=== PATIENT | male | born 1990 | race Caucasian/White ===

== ENCOUNTER 2018-07-19 09:15 | Emergency (ER) | payer OTHER ==
[2018-07-19] MEDS ORDERED: NA CHLORIDE 0.9% 1,000 ML ONE ×2 (10:05→13:43)
[2018-07-19 10:09] LABS: Protime INR 0.96
[2018-07-19 10:11] LABS: Absolute Lymphocytes (CBC) 1.2 K/uL (0.7-4.9); Absolute Monocytes 0.5 K/uL (0.1-1.3); Absolute Neutrophil 3.3 K/uL (1.8-8.0); Basophils % 0.4 % (0-1.3); Eosinophils % 1.3 % (0-4.4); Hematocrit 42.8 % (39.6-49.0); Lymphocytes % 23.9 % (15.3-44.8); MCV 89.5 fL (80-100); MPV 8.8 fL (7.6-11.3); Monocytes % 9.2 % (3.3-12.3); RBC Red Blood Cell Count 4.79 M/uL (4.33-5.43)
[2018-07-19 10:23] LABS: ALT/SGPT 32 U/L (12-78); AST/SGOT 20 U/L (15-37); Albumin 3.8 g/dL (3.4-5.0); Alkaline Phosphatase 79 U/L (45-117); BUN Blood Urea Nitrogen 12 mg/dL (7-18); Bicarbonate 28 mmol/L (21-32); Bilirubin Direct 0.1 mg/dL (0-0.2); Bilirubin Total 0.4 mg/dL (0.2-1.0); Glucose Level 93 mg/dL (74-106); Potassium 4.1 mmol/L (3.5-5.1); Protein, Total 7.5 g/dL (6.4-8.2); Sodium Level 141 mmol/L (136-145)
[2018-07-19 11:42] LABS: Barbiturates NEGATIVE (NEGATIVE); Benzodiazepines NEGATIVE (NEGATIVE); Cocaine NEGATIVE (NEGATIVE); METHAMPHETAM NEGATIVE (NEGATIVE); Methadone NEGATIVE (NEGATIVE); Opiates NEGATIVE (NEGATIVE); Phencyclidine NEGATIVE (NEGATIVE); THC Cannibis NEGATIVE (NEGATIVE)
[2018-07-19 12:19] LABS: Urine Blood NEGATIVE (NEG); Urine Glucose NEGATIVE (NEG); Urine Protein NEGATIVE (NEG); Urine pH 6.5 (5.0-7.0)
--- NOTE | 2018-07-19 13:08 | EKG ---
Test Date: 2018-07-19 Test Time: 09:36:06 Supervisor C[employer] Making Hand: MELVIN MEASUREMENT RESULTS: Intervals: Rate: 81 AL: 158 QRSD: 82 QT: 356 QTc: 413 [place]: P: 67 AL: 158 QRS: 88 T: 41 INTERPRETIVE STATEMENTS: Normal sinus rhythm Normal ECG No previous ECG available for comparison Electronically Signed On 07-19-18 13:07:36 PRESS TENDER SMOKE SIGNAL by Quang Suazo
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
== END 2018-07-19 18:58 | disposition home or self-care (01) ==
LOC: ER 09:15
DX: T43.592A Poisoning by other antipsychotics and neuroleptics, intentional self-harm, initial encounter (principal); F32.9 Major depressive disorder, single episode, unspecified; F31.9 Bipolar disorder, unspecified; F17.210 Nicotine dependence, cigarettes, uncomplicated
CPT/HCPCS: 36415; 80048; 80076; 80307; 80320; 80329; 81003; 85025; 85610; 85730; 93005; 96360; 96361; 99285; J7030

== ENCOUNTER 2018-11-09 04:39 | Emergency (ER) | payer BC, OTHER ==
--- NOTE | 2018-11-09 04:57 | EDPHYS ---
Physician Documentation [facility] Name: Trixie Rutledge Age: 28 yrs Sex: Male : 1990 Arrival Date: 11/09/2018 Time: 04:42 Bed 18 Private MD: ED Physician Tobias Lei HPI: 11/09 04:53 This 28 yrs old Male presents to ER via Unassigned with complaints of Runny ps1 Nose. 04:53 patient has flu like illness for 3 days. LEIJA, sore throat, body aches, runny nose. Not ps1 taking medications. Took a dayquil yesterday. Sick contacts. Flu is prevalent. OOW for tamiflu. . Historical: - Allergies: 04:55 No Known Allergies; tl2 - PMHx: 04:55 Anxiety; Bipolar disorder; Depression; tl2 - PSHx: 04:55 brain sx; tl2 - Immunization history:: Adult Immunizations up to date. - Social history:: Smoking status: Patient/guardian denies using tobacco. - Ebola Screening: : No symptoms or risks identified at this time. ROS: 04:53 Eyes: Negative for injury, pain, redness, and discharge, Neck: Negative for injury, ps1 pain, and swelling, Cardiovascular: Negative for chest pain, palpitations, and edema, Abdomen/GI: Negative for abdominal pain, nausea, vomiting, diarrhea, and constipation, Back: Negative for injury and pain, MS/Extremity: Negative for injury and deformity, Skin: Negative for injury, rash, and discoloration, Neuro: Negative for headache, weakness, numbness, tingling, and seizure. 04:53 Constitutional: Positive for body aches, chills, fatigue, malaise. 04:53 ENT: Positive for rhinorrhea, sinus congestion. 04:53 Respiratory: Positive for cough. Exam: 04:53 Constitutional: This is a well developed, well nourished patient who is awake, alert, ps1 and in no acute distress. Neck: Trachea midline, no thyromegaly or masses palpated, and no cervical lymphadenopathy. Supple, full range of motion without nuchal rigidity, or vertebral point tenderness. No Meningismus. Chest/axilla: Normal chest wall appearance and motion. Nontender with no deformity. No lesions are appreciated. Cardiovascular: Regular rate and rhythm. No gallops, murmurs, or rubs. Normal PMI, no JVD. No pulse deficits. Respiratory: Lungs have equal breath sounds bilaterally, clear to auscultation and percussion. No rales, rhonchi or wheezes noted. No increased work of breathing, no retractions or nasal flaring. Abdomen/GI: Soft, non-tender, with normal bowel sounds. No distension or tympany. No guarding or rebound. No evidence of tenderness throughout. Skin: Warm, dry with normal turgor. Normal color with no rashes, no lesions, and no evidence of cellulitis. MS/ Extremity: Pulses equal, no cyanosis. Neurovascular intact. Full, normal range of motion. Neuro: Awake and alert, GCS 15, oriented to person, place, time, and situation. Cranial nerves II-XII grossly intact. Sensory grossly intact. 04:53 ENT: Nose: Turbinates: are swollen bilaterally, sinus congestion. Vital Signs: 04:55 BP 134 / 65; Pulse 96; Resp 18; Temp 97.5(O); Pulse Ox 96% on R/A; Weight 81.65 kg; tl2 Height 5 ft. 8 in. (172.72 cm); 04:55 Body Mass Index 27.37 (81.65 kg, 172.72 cm) tl2 MDM: 04:55 Data reviewed: vital signs, nurses notes, and as a result, I will discharge patient. ED ps1 course: Patient 3 days into sickness. OOW for tamiflu. Influenza endemic. Home with symptomatic medications, Encourage fluids, aleve, chlorpheneramine, tylenol cold and flu, tessalon. . 04:57 Patient medically screened. ps1 11/09 04:49 Order name: Flu ea Administered Medications: No medications were administered Disposition: 04:55 Chart complete. ps1 Disposition: 11/09/18 04:57 Discharged to Home. Impression: Influenza-like illness. - Condition is Stable. - Discharge Instructions: Influenza, Adult. - Prescriptions for Cepacol Sore Throat (kevin- men) - take 1 lozenge by ORAL route as directed; 30 lozenge. Tylenol Cold and Flu Severe - take 1 Tablespoon by ORAL route as directed; 2 bottle. Anaprox DS 550 mg Oral Tablet - take 1 tablet by ORAL route every 12 hours As needed; 20 tablet. Tessalon Perles 100 mg Oral Capsule - take 1 capsule by ORAL route every 8 hours As needed; 15 capsule. Afrin (oxymetazoline) 0.05 % Nasal Aerosol, [place] - spray 2 sprays by INTRANASAL route 2 times per day Not to exceed 3 days use; 1 Container. - Work release form, Medication Reconciliation Form, Thank You Letter, Antibiotic Education, Prescription Opioid Use form. - Follow up: Private Physician; When: As needed; Reason: Recheck today's complaints, Continuance of care, Re-evaluation by your physician. Follow up: Emergency Department; When: As needed; Reason: Worsening of condition. - Problem is new. - Symptoms are unchanged. Signatures: Dispatcher [employer] EDMS Rufina Hawkins RN RN tl2 Tobias Lei MD MD ps1 Corrections: (The following items were deleted from the chart) 05:31 04:57 11/09/2018 04:57 Discharged to Home. Impression: Influenza-like illness. tl2 Condition is Stable. Forms are Medication Reconciliation Form, Thank You Letter, Antibiotic Education, Prescription Opioid Use. Follow up: Private Physician; When: As needed; Reason: Recheck today's complaints, Continuance of care, Re-evaluation by your physician. Follow up: Emergency Department; When: As needed; Reason: Worsening of condition. Problem is new. Symptoms are unchanged. ps1
--- NOTE | 2018-11-09 04:57 | ER ---
Nurse's Notes [facility] Name: Trixie Rutledge Age: 28 yrs Sex: Male : 1990 Arrival Date: 11/09/2018 Time: 04:42 Bed 18 Private MD: Diagnosis: Influenza-like illness Presentation: 11/09 04:53 Presenting complaint: Patient states: flu-like symptoms, body aches, sore throat, runny ea nose productive cough x 3 days. Denies fever. Transition of care: patient was not received from another setting of care. Onset of symptoms was November 06, 2018. Risk Assessment: Do you want to hurt yourself or someone else? Patient reports no desire to harm self or others. Initial Sepsis Screen: Does the patient meet any 2 criteria? No. Patient's initial sepsis screen is negative. Does the patient have a suspected source of infection? No. Patient's initial sepsis screen is negative. Care prior to arrival: None. 04:53 Method Of Arrival: Ambulatory ea 04:53 Acuity: BHARAT 4 ea Triage Assessment: 04:55 General: Appears in no apparent distress. uncomfortable, Behavior is calm, cooperative, tl2 appropriate for age. Pain: Complains of pain in body aches. Neuro: Level of Consciousness is awake, alert, obeys commands, Oriented to person, place, time, situation. Cardiovascular: Denies chest pain. Respiratory: Reports cough that is productive, Airway is patent Respiratory effort is even, unlabored, Respiratory pattern is regular, symmetrical. GI: No signs and/or symptoms were reported involving the gastrointestinal system. : No signs and/or symptoms were reported regarding the genitourinary system. Derm: Skin is pink, warm \T\ dry. Historical: - Allergies: 04:55 No Known Allergies; tl2 - PMHx: 04:55 Anxiety; Bipolar disorder; Depression; tl2 - PSHx: 04:55 brain sx; tl2 - Immunization history:: Adult Immunizations up to date. - Social history:: Smoking status: Patient/guardian denies using tobacco. - Ebola Screening: : No symptoms or risks identified at this time. Screenin:59 Abuse screen: Denies threats or abuse. Nutritional screening: No deficits noted. tl2 Tuberculosis screening: No symptoms or risk factors identified. Fall Risk None identified. Assessment: 04:55 General: see triage assessment. tl2 Vital Signs: 04:55 BP 134 / 65; Pulse 96; Resp 18; Temp 97.5(O); Pulse Ox 96% on R/A; Weight 81.65 kg; tl2 Height 5 ft. 8 in. (172.72 cm); 04:55 Body Mass Index 27.37 (81.65 kg, 172.72 cm) tl2 ED Course: 04:42 Patient arrived in ED. ag3 04:48 Tobias Lei MD is Attending Physician. ps1 04:54 Triage completed. ea 04:55 Arm band placed on right wrist. tl2 04:55 Patient did not have IV access during this emergency room visit. tl2 04:59 Patient has correct armband on for positive identification. Bed in low position. Call tl2 light in reach. Side rails up X 1. 04:59 No provider procedures requiring assistance completed. tl2 05:09 Rufina Hawkins RN is Primary Nurse. tl2 Administered Medications: No medications were administered Outcome: 04:55 Discharged to home ambulatory, with family. tl2 04:55 Condition: stable 04:55 Discharge instructions given to patient, Instructed on discharge instructions, follow up and referral plans. medication usage, Demonstrated understanding of instructions, follow-up care, medications, Prescriptions given X 5 04:57 Discharge ordered by . ps1 05:31 Patient left the ED. tl2 Signatures: Rufina Hawkins RN RN tl2 Misa Rowe RN RN ea Singer, Phillip, MD MD ps1 Kristan Juan ag3
== END 2018-11-09 05:31 | disposition home or self-care (01) ==
LOC: ER 04:39
DX: J11.1 Influenza due to unidentified influenza virus with other respiratory manifestations (principal)
CPT/HCPCS: 87804; 99282

== ENCOUNTER 2018-11-14 13:13 | Emergency (ER) | payer BC ==
--- NOTE | 2018-11-14 14:57 | ER ---
Nurse's Notes [facility] Name: Trixie Rutledge Age: 28 yrs Sex: Male : 1990 Arrival Date: 11/14/2018 Time: 13:16 Bed Waiting Private MD: None, None Diagnosis: Presentation: 11/14 13:40 Presenting complaint: Right ring finger pain and swelling upon waking today. Denies hb injury. Transition of care: patient was not received from another setting of care. Onset of symptoms was November 14, 2018. Risk Assessment: Do you want to hurt yourself or someone else? Patient reports no desire to harm self or others. Care prior to arrival: None. 13:40 Method Of Arrival: Ambulatory hb 13:40 Acuity: BHARAT 4 hb Historical: - Allergies: 13:41 No Known Allergies; hb - PMHx: 13:41 Anxiety; Bipolar disorder; Depression; hb - PSHx: 13:41 brain sx; Shoulder - RIGHT; Hand - RIGHT; hb - Immunization history:: Adult Immunizations up to date. - Social history:: Smoking status: Patient/guardian denies using tobacco. - Ebola Screening: : No symptoms or risks identified at this time. Vital Signs: 13:41 BP 123 / 70; Pulse 97; Resp 16; Temp 98.0; Pulse Ox 99% on R/A; Pain 6/10; hb ED Course: 13:16 Patient arrived in ED. as 13:16 None, None is Private Physician. as 13:41 Triage completed. hb 13:41 Arm band placed on. hb 14:40 Patient's name was called from ER lobby. No response. Unable to locate patient. Will hb disposition as left without being seen by a provider. 14:56 Patient's name was called from ER lobby. No response. Unable to locate patient. Will hb disposition as left without being seen by a provider. Administered Medications: No medications were administered Outcome: 14:57 Patient left the ED. hb Signatures: Alma Delia Elizondo Heather, RN RN hb
== END 2018-11-14 14:57 | disposition left against medical advice (07) ==
LOC: ER 13:13
DX: M79.644 Pain in right finger(s) (principal); Z53.21 Procedure and treatment not carried out due to patient leaving prior to being seen by health care provider
CPT/HCPCS: 99281

== ENCOUNTER 2018-11-14 21:02 | Emergency (ER) | payer BC ==
--- NOTE | 2018-11-14 22:13 | ER ---
Nurse's Notes [facility] Name: Trixie Rutledge Age: 28 yrs Sex: Male : 1990 Arrival Date: 11/14/2018 Time: 21:06 Bed 11 Private MD: None, None Diagnosis: Other specific joint derangements of right hand, not elsewhere classified Presentation: 11/14 21:07 Presenting complaint: Patient states: "I might have broken my ring finger on my right jd3 hand. I also need to have a flu test done.". Transition of care: patient was not received from another setting of care. Onset of symptoms was November 14, 2018. Risk Assessment: Do you want to hurt yourself or someone else? Patient reports no desire to harm self or others. Initial Sepsis Screen: Does the patient meet any 2 criteria? No. Patient's initial sepsis screen is negative. Does the patient have a suspected source of infection? No. Patient's initial sepsis screen is negative. Care prior to arrival: None. 21:07 Method Of Arrival: Ambulatory jd3 21:07 Acuity: BHARAT 4 jd3 Historical: - Allergies: 21:09 No Known Allergies; jd3 - Home Meds: 21:09 None [Active]; jd3 - PMHx: 21:09 Anxiety; Bipolar disorder; Depression; ADD/ADHD; jd3 - PSHx: 21:09 Hand - RIGHT; Shoulder - RIGHT; brain sx; jd3 - Immunization history:: Adult Immunizations up to date. - Social history:: Smoking status: Patient uses tobacco products, smokes one pack cigarettes per day. - Ebola Screening: : Patient negative for fever greater than or equal to 101.5 degrees Fahrenheit, and additional compatible Ebola Virus Disease symptoms. Screenin:37 Abuse screen: Denies threats or abuse. Denies injuries from another. Nutritional ao screening: No deficits noted. Tuberculosis screening: No symptoms or risk factors identified. Fall Risk None identified. Assessment: 21:45 General: Appears in no apparent distress. comfortable, Behavior is calm, cooperative, ao appropriate for age. Pain: Complains of pain in PIP of right ring finger. Neuro: Level of Consciousness is awake, alert, obeys commands, Oriented to person, place, time, situation, Appropriate for age Moves all extremities. Full function Speech is normal, Facial symmetry appears normal. Cardiovascular: Capillary refill < 3 seconds Patient's skin is warm and dry. Respiratory: Airway is patent Respiratory effort is even, unlabored, Respiratory pattern is regular, symmetrical, Breath sounds are clear bilaterally. GI: Abdomen is flat, non-distended. : No deficits noted. No signs and/or symptoms were reported regarding the genitourinary system. EENT: No deficits noted. No signs and/or symptoms were reported regarding the EENT system. Derm: Skin is intact, Skin is pink, warm \\T\\ dry. normal, Skin temperature is warm. Musculoskeletal: Circulation, motion, and sensation intact. Range of motion: intact in all extremities, Reports pain in PIP of right ring finger. 22:36 Reassessment: Dc instructions given to patient. Pt agree with POC and to follow up with ao an orthopedic. Ring finger was splinted. No questions. Vital Signs: 21:09 BP 122 / 81; Pulse 99; Resp 16 S; Temp 98.1(TE); Pulse Ox 100% on R/A; Weight 86.18 kg jd3 (R); Height 5 ft. 10 in. (177.80 cm) (R); Pain 4/10; 22:36 Pulse 94; Resp 16; Pulse Ox 99% on R/A; Pain 0/10; ao 21:09 Body Mass Index 27.26 (86.18 kg, 177.80 cm) jd3 ED Course: 21:06 Patient arrived in ED. mr 21:06 None, None is Private Physician. mr 21:08 Triage completed. jd3 21:10 Arm band placed on. jd3 21:29 Jignesh Ragland MD is Attending Physician. gs 21:44 Ke Taylor, HAZEL is Primary Nurse. ao 22:00 Hand Right 3 View XRAY In Process Unspecified. EDMS 22:12 Lamonte Harrington MD is Referral Physician. gs 22:37 No provider procedures requiring assistance completed. Patient did not have IV access ao during this emergency room visit. 22:39 Patient has correct armband on for positive identification. ao Administered Medications: No medications were administered Outcome: 22:12 Discharge ordered by . gs 22:38 Discharged to home ambulatory. ao 22:38 Condition: stable 22:38 Discharge instructions given to patient, Instructed on discharge instructions, follow up and referral plans. Demonstrated understanding of instructions, follow-up care, medications, Prescriptions given X Pt refused to take prescriptions and was advise to take Ibuprofen if needed for pain. 22:39 Patient left the ED. ao Signatures: Dispatcher [employer] MARLYSYoselin FuentesKe RN RN ao Starr, Gregory, MD MD gs Davies, Jonathon, RN RN jd3 Corrections: (The following items were deleted from the chart) 21:11 21:09 Pulse 99bpm; Resp 16bpm; Spontaneous; Pulse Ox 100% RA; Temp 98.1F Temporal; jd3 86.18 kg Reported; Height 5 ft. 10 in. Reported; BMI: 27.2; Pain 4/10; jd3
--- NOTE | 2018-11-14 22:13 | EDPHYS ---
Physician Documentation [facility] Name: Trixie Rutledge Age: 28 yrs Sex: Male : 1990 Arrival Date: 11/14/2018 Time: 21:06 Bed 11 Private MD: None, None ED Physician Jignesh Ragland HPI: 11/14 22:08 This 28 yrs old Male presents to ER via Ambulatory with complaints of gs swelling r ring finger. 22:08 The complaints affect the dorsal aspect of proximal phalanx of right ring finger. gs Onset: The symptoms/episode began/occurred acutely. Associated signs and symptoms: Pertinent negatives: cyanosis distally, decreased sensation distally, fever, nausea, numbness distally. Severity of symptoms: At their worst the symptoms were moderate, in the emergency department the symptoms are unchanged. The patient has not experienced similar symptoms in the past. The patient has been recently seen at the [facility] Emergency Department, a couple of weeks ago, for unrelated complaints. Historical: - Allergies: 21:09 No Known Allergies; jd3 - Home Meds: 21:09 None [Active]; jd3 - PMHx: 21:09 Anxiety; Bipolar disorder; Depression; ADD/ADHD; jd3 - PSHx: 21:09 Hand - RIGHT; Shoulder - RIGHT; brain sx; jd3 - Immunization history:: Adult Immunizations up to date. - Social history:: Smoking status: Patient uses tobacco products, smokes one pack cigarettes per day. - Ebola Screening: : Patient negative for fever greater than or equal to 101.5 degrees Fahrenheit, and additional compatible Ebola Virus Disease symptoms. ROS: 22:08 All other systems are negative. gs Exam: 22:08 ENT: Nares patent. No nasal discharge, no septal abnormalities noted. Tympanic gs membranes are normal and external auditory canals are clear. Oropharynx with no redness, swelling, or masses, exudates, or evidence of obstruction, uvula midline. Mucous membranes moist. Cardiovascular: Regular rate and rhythm with a normal S1 and S2. No gallops, murmurs, or rubs. Normal PMI, no JVD. No pulse deficits. Respiratory: Lungs have equal breath sounds bilaterally, clear to auscultation and percussion. No rales, rhonchi or wheezes noted. No increased work of breathing, no retractions or nasal flaring. Abdomen/GI: Soft, non-tender, with normal bowel sounds. No distension or tympany. No guarding or rebound. No evidence of tenderness throughout. Back: No spinal tenderness. No costovertebral tenderness. Full range of motion. Skin: Warm, dry with normal turgor. Normal color with no rashes, no lesions, and no evidence of cellulitis. Neuro: Awake and alert, GCS 15, oriented to person, place, time, and situation. Cranial nerves II-XII grossly intact. Motor strength 5/5 in all extremities. Sensory grossly intact. Cerebellar exam normal. Normal gait. 22:08 Constitutional: The patient appears alert, awake. 22:08 Musculoskeletal/extremity: Extremities: noted in the dorsal aspect of proximal phalanx of right ring finger: ROM: limited active range of motion, limited passive range of motion, limited active range of motion due to pain, limited passive range of motion due to pain, Pulses: are normal with no appreciated deficits, Joints: the PIP of right ring finger displays swelling, tenderness, no warmth or redness decreased rom. Vital Signs: 21:09 BP 122 / 81; Pulse 99; Resp 16 S; Temp 98.1(TE); Pulse Ox 100% on R/A; Weight 86.18 kg jd3 (R); Height 5 ft. 10 in. (177.80 cm) (R); Pain 4/10; 22:36 Pulse 94; Resp 16; Pulse Ox 99% on R/A; Pain 0/10; ao 21:09 Body Mass Index 27.26 (86.18 kg, 177.80 cm) jd3 Procedures: 22:08 Splinting: Splint applied to PIP of right ring finger using finger splint, applied by tech. Examined by me, post splint application: neurovascular intact, 2+ distal pulses palpable, brisk capillary refill noted, Patient tolerated well. MDM: 21:39 Patient medically screened. 22:08 Differential diagnosis: closed fracture, contusion, tendonitis, sprain. Data reviewed: vital signs, nurses notes. Response to treatment: the patient's symptoms have mildly improved after treatment. 03 21:41 Order name: Hand Right 3 View XRAY; Complete Time: 22:23 Administered Medications: No medications were administered Disposition: 11/14/18 22:12 Discharged to Home. Impression: Other specific joint derangements of right hand, not elsewhere classified. - Condition is Stable. - Discharge Instructions: Articular Cartilage Injury. - Prescriptions for Tylenol- Codeine #4 300-60 mg Oral Tablet - take 1 tablet by ORAL route every 6 hours As needed; 6 tablet. - Medication Reconciliation Form, Thank You Letter, Antibiotic Education, Prescription Opioid Use form. - Follow up: Lamonte Harrington MD; When: 2 - 3 days; Reason: Re-evaluation by your physician. Signatures: Dispatcher [employer] Ke Victoria RN RN Jignesh Parker MD MD gs Davies, Jonathon RN RN jd3 Corrections: (The following items were deleted from the chart) 22:39 22:12 11/14/2018 22:12 Discharged to Home. Impression: Other specific joint ao derangements of right hand, not elsewhere classified. Condition is Stable. Forms are Medication Reconciliation Form, Thank You Letter, Antibiotic Education, Prescription Opioid Use. Follow up: Lamonte Harrington; When: 2 - 3 days; Reason: Re-evaluation by your physician. gs
--- NOTE | 2018-11-14 22:19 | RAD REPORT ---
EXAM DESCRIPTION: RAD - Hand Right 3 View - 11/14/2018 10:00 pm CLINICAL HISTORY: PAIN Trauma, COMPARISON: <Comparisons> FINDINGS: Tiny bony fragment is seen adjacent to the fourth metacarpal head along the ulnar aspect. This is favored to be related prior trauma and not an acute finding. Correlation with point tendernes s in this location is advised, however. No definitive acute fracture seen.
== END 2018-11-14 22:39 | disposition home or self-care (01) ==
LOC: ER 21:02
DX: M24.841 Other specific joint derangements of right hand, not elsewhere classified (principal); F41.9 Anxiety disorder, unspecified; F31.9 Bipolar disorder, unspecified; F32.9 Major depressive disorder, single episode, unspecified
CPT/HCPCS: 99283

== ENCOUNTER 2018-12-12 22:58 | Emergency (ER) | payer BC ==
--- NOTE | 2018-12-13 01:02 | ER ---
Nurse's Notes [facility] Name: Trixie Rutledge Age: 28 yrs Sex: Male : 1990 Arrival Date: 12/12/2018 Time: 23:02 Bed 6 Private MD: Diagnosis: Headache Presentation: 12/12 23:19 Presenting complaint: Patient states: "I am having a headache after I pumped my head at [employer] work today. I had a brain surgery in 2012 and I was scared that I had re injured it after going on [employer].". Transition of care: patient was not received from another setting of care. Onset of symptoms was December 12, 2018. Risk Assessment: Do you want to hurt yourself or someone else? Patient reports no desire to harm self or others. Initial Sepsis Screen: Does the patient meet any 2 criteria? No. Patient's initial sepsis screen is negative. Does the patient have a suspected source of infection? No. Patient's initial sepsis screen is negative. Care prior to arrival: None. 23:19 Method Of Arrival: Ambulatory j 23:19 Acuity: BHARAT 4 jd3 Historical: - Allergies: 23:24 No Known Allergies; jd3 - Home Meds: 23:24 Seroquel Oral [Active]; jd3 - PMHx: 23:24 ADD/ADHD; Anxiety; Bipolar disorder; Depression; jd3 - PSHx: 23:24 Hand - RIGHT; Shoulder - RIGHT; brain sx; jd3 - Immunization history:: Adult Immunizations unknown. - Social history:: Smoking status: Patient uses tobacco products, smokes one pack cigarettes per day. - Ebola Screening: : Patient negative for fever greater than or equal to 101.5 degrees Fahrenheit, and additional compatible Ebola Virus Disease symptoms. Screenin:53 Abuse screen: Denies threats or abuse. Nutritional screening: No deficits noted. tl2 Tuberculosis screening: No symptoms or risk factors identified. Fall Risk None identified. Assessment: 23:53 General: Appears in no apparent distress. comfortable, Behavior is calm, cooperative, tl2 appropriate for age. Pain: Complains of pain in headache. Neuro: Level of Consciousness is awake, alert, obeys commands, Oriented to person, place, time, situation, Reports headache Denies weakness blurred vision dizziness. Cardiovascular: Denies chest pain. Respiratory: Airway is patent Respiratory effort is even, unlabored, Respiratory pattern is regular, symmetrical. GI: No signs and/or symptoms were reported involving the gastrointestinal system. : No signs and/or symptoms were reported regarding the genitourinary system. Derm: Skin is pink, warm \\T\\ dry. Vital Signs: 23:24 BP 128 / 86; Pulse 102; Resp 16 S; Temp 98.2(O); Pulse Ox 99% on R/A; Weight 44.54 kg jd3 (R); Height 5 ft. 10 in. (177.80 cm) (R); Pain 3/; 23:24 Body Mass Index 14.09 (44.54 kg, 177.80 cm) jd3 Janie Coma Score: 12/13 00:27 Eye Response: spontaneous(4). Verbal Response: oriented(5). Motor Response: obeys kb commands(6). Total: 15. 00:27 Eye Response: spontaneous(4). Verbal Response: oriented(5). Motor Response: obeys kb commands(6). Total: 15. ED Course: 12/12 23:02 Patient arrived in ED. am2 23:23 Triage completed. jd3 23:24 Arm band placed on. jd3 23:26 Yani Erickson FNP-C is [facility]. kb 23:26 Mark Piper MD is Attending Physician. kb 23:53 Patient has correct armband on for positive identification. Bed in low position. Call tl2 light in reach. Side rails up X 1. 12/13 00:16 CT Head Brain wo Cont In Process Unspecified. EDMS Administered Medications: No medications were administered Outcome: 01:01 Discharge ordered by . kb 01:34 Patient left the ED. aa1 Signatures: Dispatcher [employer] EDMS Yani Erickson FNP-C FNP-Anni Hodges RN RN aa1 Rufina Hawkins RN RN tl2 Thea Moseley am2 Zach Serrano RN RN jd3
--- NOTE | 2018-12-13 01:02 | EDPHYS ---
Physician Documentation [facility] Name: Trixie Rutledge Age: 28 yrs Sex: Male : 1990 Arrival Date: 12/12/2018 Time: 23:02 Bed 6 Private MD: ED Physician Mark Piper HPI: 12/13 00:27 This 28 yrs old Male presents to ER via Ambulatory with complaints of kb Headache. 00:27 The patient or guardian reports injury, pain. The complaints affect the forehead. kb Context of injury: The problem was sustained at work, resulted from a direct blow, a solid object. Onset: The symptoms/episode began/occurred today. Associated signs and symptoms: Loss of consciousness: This patient did not experience any loss of consciousness. Pertinent positives: headache. Severity of symptoms: At their worst the symptoms were moderate, in the emergency department the symptoms are unchanged. The patient has not experienced similar symptoms in the past. The patient has not recently seen a physician. Pt states he has had a headache ever since hitting his head at work and he's concerned because he's had brain surgery before for a clot. Wants to get a CT to make sure everything is ok because he keeps worrying about it. Historical: - Allergies: 12/12 23:24 No Known Allergies; jd3 - Home Meds: 23:24 Seroquel Oral [Active]; jd3 - PMHx: 23:24 ADD/ADHD; Anxiety; Bipolar disorder; Depression; jd3 - PSHx: 23:24 Hand - RIGHT; Shoulder - RIGHT; brain sx; jd3 - Immunization history:: Adult Immunizations unknown. - Social history:: Smoking status: Patient uses tobacco products, smokes one pack cigarettes per day. - Ebola Screening: : Patient negative for fever greater than or equal to 101.5 degrees Fahrenheit, and additional compatible Ebola Virus Disease symptoms. ROS: 12/13 00:25 Constitutional: Negative for fever, chills, and weight loss, ENT: Negative for injury, kb pain, and discharge, Neck: Negative for injury, pain, and swelling, Cardiovascular: Negative for chest pain, palpitations, and edema, Respiratory: Negative for shortness of breath, cough, wheezing, and pleuritic chest pain, Abdomen/GI: Negative for abdominal pain, nausea, vomiting, diarrhea, and constipation, Back: Negative for injury and pain, MS/Extremity: Negative for injury and deformity, Skin: Negative for injury, rash, and discoloration. Neuro: Positive for headache. Exam: 00:25 Constitutional: This is a well developed, well nourished patient who is awake, alert, kb and in no acute distress. Head/Face: Normocephalic, atraumatic. Eyes: Pupils equal round and reactive to light, extra-ocular motions intact. Lids and lashes normal. Conjunctiva and sclera are non-icteric and not injected. Cornea within normal limits. Periorbital areas with no swelling, redness, or edema. ENT: Nares patent. No nasal discharge, no septal abnormalities noted. Tympanic membranes are normal and external auditory canals are clear. Oropharynx with no redness, swelling, or masses, exudates, or evidence of obstruction, uvula midline. Mucous membranes moist. Neck: Trachea midline, no thyromegaly or masses palpated, and no cervical lymphadenopathy. Supple, full range of motion without nuchal rigidity, or vertebral point tenderness. No Meningismus. Chest/axilla: Normal chest wall appearance and motion. Nontender with no deformity. No lesions are appreciated. Cardiovascular: Regular rate and rhythm with a normal S1 and S2. No gallops, murmurs, or rubs. Normal PMI, no JVD. No pulse deficits. Respiratory: Lungs have equal breath sounds bilaterally, clear to auscultation and percussion. No rales, rhonchi or wheezes noted. No increased work of breathing, no retractions or nasal flaring. Abdomen/GI: Soft, non-tender, with normal bowel sounds. No distension or tympany. No guarding or rebound. No evidence of tenderness throughout. Skin: Warm, dry with normal turgor. Normal color with no rashes, no lesions, and no evidence of cellulitis. MS/ Extremity: Pulses equal, no cyanosis. Neurovascular intact. Full, normal range of motion. Neuro: Awake and alert, GCS 15, oriented to person, place, time, and situation. Cranial nerves II-XII grossly intact. Motor strength 5/5 in all extremities. Sensory grossly intact. Cerebellar exam normal. Normal gait. Vital Signs: 12/12 23:24 BP 128 / 86; Pulse 102; Resp 16 S; Temp 98.2(O); Pulse Ox 99% on R/A; Weight 44.54 kg jd3 (R); Height 5 ft. 10 in. (177.80 cm) (R); Pain 3/10; 23:24 Body Mass Index 14.09 (44.54 kg, 177.80 cm) jd3 Janie Coma Score: 12/13 00:27 Eye Response: spontaneous(4). Verbal Response: oriented(5). Motor Response: obeys kb commands(6). Total: 15. 00:27 Eye Response: spontaneous(4). Verbal Response: oriented(5). Motor Response: obeys kb commands(6). Total: 15. MDM: 12/12 23:26 Patient medically screened. kb 12/13 00:27 Data reviewed: vital signs, nurses notes. Data interpreted: Pulse oximetry: on room air kb is 99 %. Interpretation: normal. Counseling: I had a detailed discussion with the patient and/or guardian regarding: the historical points, exam findings, and any diagnostic results supporting the discharge/admit diagnosis, radiology results, the need for outpatient follow up, a family practitioner, to return to the emergency department if symptoms worsen or persist or if there are any questions or concerns that arise at home. 12/12 23:38 Order name: CT Head Brain wo Cont kb Administered Medications: No medications were administered Disposition: 09:02 Co-signature as Attending Physician, Mark Piper MD I agree with the assessment and fab plan of care. Disposition: 12/13/18 01:01 Discharged to Home. Impression: Headache. - Condition is Stable. - Discharge Instructions: Head Injury, Adult, [id number]. - Medication Reconciliation Form, Thank You Letter, Antibiotic Education, Prescription Opioid Use form. - Follow up: Emergency Department; When: As needed; Reason: Worsening of condition. Follow up: Private Physician; When: 2 - 3 days; Reason: Recheck today's complaints, Continuance of care, Re-evaluation by your physician. Signatures: Dispatcher [employer] Yani Loaiza, BAYLEEC YULIET-Anni Hodges RN RN aa1 Mark Piper MD MD cha Davies, Jonathon, RN RN jd3 Corrections: (The following items were deleted from the chart) 01:34 01:01 12/13/2018 01:01 Discharged to Home. Impression: Headache. Condition is Stable. aa1 Forms are Medication Reconciliation Form, Thank You Letter, Antibiotic Education, Prescription Opioid Use. Follow up: Emergency Department; When: As needed; Reason: Worsening of condition. Follow up: Private Physician; When: 2 - 3 days; Reason: Recheck today's complaints, Continuance of care, Re-evaluation by your physician. kb
--- NOTE | 2018-12-13 09:56 | RAD REPORT ---
EXAM DESCRIPTION: CT - Head Brain Wo Cont - 12/13/2018 4:54 am CLINICAL HISTORY: The patient is 28 years old and is Male; HEADACHE TECHNIQUE: Axial computed tomography images of the head/brain without intravenous contrast. Sagitt al and coronal reformatted images were created and reviewed. This CT exam was performed using one o r more of the following dose reduction techniques: automated exposure control, adjustment of the mA and/or kV according to patient size, and/or use of iterative reconstruction technique. COMPARISON: No relevant prior studies available. FINDINGS: BRAIN: Unremarkable. The dunne-white matter differentiation is preserved . No hemorrhag e. No significant white matter disease. No edema. No extra-axial fluid collections. VENTRICLES: Unremarkable. No ventriculomegaly. BONES/JOINTS: Postsurgical change of the right temporal bone is noted. SOFT TISSUES: Unremarkable. SINUSES: Unremarkable as visualized. No acute sinusitis. MASTOID AIR CELLS: Unremarkable as visualized. No mastoid effusion. IMPRESSION: No acute intracranial findings. Electronically signed by: Cathie Ballard MD 12/13/2018 12:14 AM CDT Due to temporary technical issues with the PACS/Fluency reporting system, reports are being signed by the in house radiologist as a courtesy to ensure prompt reporting. The interpreting radiologist is f ully responsible for the content of the report.
== END 2018-12-13 01:34 | disposition home or self-care (01) ==
LOC: ER 22:58
DX: R51 Headache (principal); F90.9 Attention-deficit hyperactivity disorder, unspecified type; F31.9 Bipolar disorder, unspecified; F32.9 Major depressive disorder, single episode, unspecified; F17.210 Nicotine dependence, cigarettes, uncomplicated
CPT/HCPCS: 70450; 99282

== ENCOUNTER 2020-02-06 13:22 | Emergency (ER) | payer BC, SELFPAY ==
[2020-02-06 14:19] LABS: Absolute Lymphocytes (CBC) 1.9 K/uL (0.7-4.9); Basophils % 0.7 % (0-1.3); Hematocrit 40.4 % (39.6-49.0); Lymphocytes % 24.3 % (15.3-44.8); MPV 8.3 fL (7.6-11.3); RBC Red Blood Cell Count 4.54 M/uL (4.33-5.43)
[2020-02-06 14:42] LABS: ALT/SGPT 48 U/L (12-78); AST/SGOT 27 U/L (15-37); Albumin 3.5 g/dL (3.4-5.0); Alkaline Phosphatase 84 U/L (45-117); BUN Blood Urea Nitrogen 15 mg/dL (7-18); Bicarbonate 26 mmol/L (21-32); Bilirubin Direct < 0.1 mg/dL (0-0.2); Bilirubin Total 0.2 mg/dL (0.2-1.0); Glucose Level 107 mg/dL (74-106); Potassium 3.9 mmol/L (3.5-5.1); Protein, Total 7.5 g/dL (6.4-8.2); Sodium Level 143 mmol/L (136-145)
[2020-02-06 15:32] LABS: Urine Blood NEGATIVE (NEG); Urine Glucose NEGATIVE (NEG); Urine Protein TRACE (NEG); Urine Specific Gravity >1.030 (1.005-1.030); Urine pH 5.5 (5.0-7.0)
[2020-02-06 15:45] LABS: Barbiturates NEGATIVE (NEGATIVE); Benzodiazepines NEGATIVE (NEGATIVE); Cocaine NEGATIVE (NEGATIVE); METHAMPHETAM POSITIVE (NEGATIVE); Methadone NEGATIVE (NEGATIVE); Opiates NEGATIVE (NEGATIVE); Phencyclidine NEGATIVE (NEGATIVE); THC Cannibis POSITIVE (NEGATIVE)
--- NOTE | 2020-02-06 16:27 | EKG ---
Test Date: 2020-02-06 Test Time: 14:14:32 It Compliance Analyst: KADY MEASUREMENT RESULTS: Intervals: Rate: 85 MI: 160 QRSD: 82 QT: 362 QTc: 430 [place]: P: 69 MI: 160 QRS: 87 T: 71 INTERPRETIVE STATEMENTS: Normal sinus rhythm Normal ECG Compared to ECG 07/19/2018 09:36:06 No significant changes Electronically Signed On 02-06-20 16:27:20 CDT by Franko Beckham
--- NOTE | 2020-02-06 19:49 | EDPHYS ---
Physician Documentation [facility] Name: Trixie Rutledge Age: 29 yrs Sex: Male : 1990 Arrival Date: 02/06/2020 Time: 13:25 Bed 16 Private MD: ED Physician Mark Piper HPI: 02/05 18:38 This 29 yrs old Male presents to ER via Ambulatory with complaints of Psych kdr Problem. 18:38 The patient presents to the emergency department with anxiety, depression, a history of kdr a suicide gesture, Hung himself, suicide ideation, and the patient has a plan, to hang oneself. Onset: The symptoms/episode began/occurred gradually, 4 day(s) ago. Past psychiatric history: Prior diagnosis: bipolar disorder, depression, PTSD, Psychiatric medications include: none, Primary psychiatric physician: the patient does not have a primary psychiatric physician, the patient has had a prior suicide gesture, hanging, the patient does not have a previous inpatient psychiatric history, the patient's last psychiatric treatment was Long time ago. Associated signs and symptoms: The patient has no apparent associated signs or symptoms. Severity of symptoms: At their worst the symptoms were moderate severe just prior to arrival, today, in the emergency department the symptoms are unchanged. The patient has experienced similar episodes in the past, chronically. The patient has not recently seen a physician. Historical: - Allergies: 13:34 No Known Allergies; sv - PMHx: 13:34 ADD/ADHD; Anxiety; Bipolar disorder; Depression; PTSD; sv - PSHx: 13:34 Hand - RIGHT; Shoulder - RIGHT; brain sx; sv - Immunization history:: Adult Immunizations unknown. - Social history:: Smoking status: Patient reports the use of cigarette tobacco products. ROS: 18:38 Constitutional: Negative for fever, chills, and weight loss, Eyes: Negative for injury, kdr pain, redness, and discharge, ENT: Negative for injury, pain, and discharge, Neck: Negative for injury, pain, and swelling, Cardiovascular: Negative for chest pain, palpitations, and edema, Respiratory: Negative for shortness of breath, cough, wheezing, and pleuritic chest pain, Abdomen/GI: Negative for abdominal pain, nausea, vomiting, diarrhea, and constipation, Back: Negative for injury and pain, : Negative for injury, bleeding, discharge, and swelling, MS/Extremity: Negative for injury and deformity, Skin: Negative for injury, rash, and discoloration, Neuro: Negative for headache, weakness, numbness, tingling, and seizure activity. Allergy/Immunology: Negative for hives, rash, and allergies, Endocrine: Negative for neck swelling, polydipsia, polyuria, polyphagia, and marked weight changes, Hematologic/Lymphatic: Negative for swollen nodes, abnormal bleeding, and unusual bruising. 18:38 Psych: Positive for anxiety, depression, drug dependence, suicide gesture, suicidal ideation, The patient uses Meth and Cannabis on a regular basis. Exam: 18:38 Constitutional: This is a well developed, well nourished patient who is awake, alert, kdr and in no acute distress. Head/Face: Normocephalic, atraumatic. Eyes: Pupils equal round and reactive to light, extra-ocular motions intact. Lids and lashes normal. Conjunctiva and sclera are non-icteric and not injected. Cornea within normal limits. Periorbital areas with no swelling, redness, or edema. Neck: Trachea midline, no thyromegaly or masses palpated, and no cervical lymphadenopathy. Supple, full range of motion without nuchal rigidity, or vertebral point tenderness. No Meningismus. Chest/axilla: Normal chest wall appearance and motion. Nontender with no deformity. No lesions are appreciated. Cardiovascular: Regular rate and rhythm with a normal S1 and S2. No gallops, murmurs, or rubs. Normal PMI, no JVD. No pulse deficits. Respiratory: Lungs have equal breath sounds bilaterally, clear to auscultation and percussion. No rales, rhonchi or wheezes noted. No increased work of breathing, no retractions or nasal flaring. Abdomen/GI: Soft, non-tender, with normal bowel sounds. No distension or tympany. No guarding or rebound. No evidence of tenderness throughout. Back: No spinal tenderness. No costovertebral tenderness. Full range of motion. Skin: Warm, dry with normal turgor. Normal color with no rashes, no lesions, and no evidence of cellulitis. MS/ Extremity: Pulses equal, no cyanosis. Neurovascular intact. Full, normal range of motion. Neuro: Awake and alert, GCS 15, oriented to person, place, time, and situation. Cranial nerves II-XII grossly intact. Motor strength 5/5 in all extremities. Sensory grossly intact. Cerebellar exam normal. Normal gait. 18:38 Psych: Behavior/mood is pleasant, cooperative, suicidal, depressed, Affect is calm, flat, Oriented to person, place, time, Patient having thoughts of suicide. Plan for suicide is hanging Delusions/hallucinations are not present. Vital Signs: 13:36 BP 121 / 78; Pulse 92; Resp 20; Temp 98.2; Pulse Ox 98% ; Height 5 ft. 10 in. (177.80 sv cm); 16:45 BP 123 / 74 RA Sitting (auto/reg); Pulse 72 LA; Resp 16 S; Pulse Ox 97% on R/A; mb4 02/06 01:09 BP 122 / 72; Pulse 70; Resp 16; Temp 98.0(O); Pulse Ox 99% on R/A; Pain 0/10; ls4 MDM: 02/05 18:38 Data reviewed: vital signs, nurses notes, lab test result(s), radiologic studies. kdr Counseling: I had a detailed discussion with the patient and/or guardian regarding: the historical points, exam findings, and any diagnostic results supporting the discharge/admit diagnosis, lab results, radiology results, the need to transfer to another facility. ED course: D/w [facility] ([facility]) and they agree that inpatient in the appropriate next step. 19:15 Patient medically screened. fab 19:49 Differential diagnosis: drug withdrawal. acute psychotic break, depression, psychosis fab secondary to non-compliance. Data interpreted: dental laboratory manager: rate is 72 beats/min, Pulse oximetry: on room air is 97 %. Test interpretation: by ED physician or midlevel provider: ECG. Response to treatment: the patient's symptoms have markedly improved after treatment, patient is well hydrated. ED course: pt wants help , will go voluntary, pt stable and patiently waiting. 02/05 13:48 Order name: Acetaminophen; Complete Time: 15:49 kdr 02/05 13:48 Order name: Basic Metabolic Panel; Complete Time: 15:49 kdr 02/05 13:48 Order name: CBC with Diff; Complete Time: 15:49 kdr 02/05 13:48 Order name: ETOH Level; Complete Time: 15:49 kdr 02/05 13:48 Order name: Hepatic Function; Complete Time: 15:49 kdr 02/05 13:48 Order name: Salicylate; Complete Time: 15:49 kdr 02/05 13:48 Order name: Urine Drug Screen; Complete Time: 15:49 kdr 02/05 13:48 Order name: EKG; Complete Time: 13:48 kdr 02/05 13:48 Order name: EKG - Nurse/Tech; Complete Time: 14:09 kdr 02/05 13:48 Order name: IV Saline Lock; Complete Time: 14:09 kdr 02/05 15:11 Order name: Urine Dipstick--Ancillary (enter results); Complete Time: 15:49 bd 02/05 13:48 Order name: Labs collected and sent; Complete Time: 14:09 kdr 02/05 13:48 Order name: Urine Dipstick-Ancillary (obtain specimen); Complete Time: 14:57 kdr Administered Medications: 19:50 Drug: Nicoderm CQ 21 mg/24 hr 1 patches Route: Transdermal; Site: anterior chest wall; ls4 20:30 Follow up: Response: No adverse reaction; Marked relief of symptoms ls4 20:06 Drug: Ativan 1 mg Route: IVP; Site: left forearm; ls4 20:36 Follow up: Response: No adverse reaction; Marked relief of symptoms ls4 22:24 Not Given (Other Intervention Used; other intervention): SEROquel 50 mg PO once ls4 Disposition: 02/06/20 19:48 Transfer ordered to Psych Facility. Diagnosis are Bipolar disorder, Suicide attempt, Suicidal ideations, Abuse of other non-psychoactive substances, Adverse effect of amphetamines. - Reason for transfer: Higher level of care. - Accepting physician is to psych, voluntary. - Condition is Stable. - Problem is new. - Symptoms have improved. Signatures: Dispatcher [employer] EDJolynn Martinez RN RN sv Anderson, Corey, MD MD cha Rittger, Kevin, MD MD kdr Habalo, Winsy wh Stewart, Lisa, RN RN ls4 Corrections: (The following items were deleted from the chart) 02/06 02:30 02/05 19:48 02/06/2020 19:48 Transfer ordered to Psych Facility. Diagnosis is Bipolar wh disorder; Suicide attempt; Suicidal ideations; Abuse of other non-psychoactive substances; Adverse effect of amphetamines. Reason for transfer: Higher level of care. Accepting physician is to psych, voluntary. Condition is Stable. Problem is new. Symptoms have improved. fab
--- NOTE | 2020-02-06 19:49 | ER ---
Nurse's Notes [facility] Name: Trixie Rutledge Age: 29 yrs Sex: Male : 1990 Arrival Date: 02/06/2020 Time: 13:25 Bed 16 Private MD: Diagnosis: Bipolar disorder;Suicide attempt;Suicidal ideations;Abuse of other non-psychoactive substances;Adverse effect of amphetamines Presentation: 02/05 13:28 Chief complaint: Patient states: reports SI the past couple of days. Reports that he sv hung himself 3 days ago in [place] and is down here with family and wants to get help. Stated that they were going to transfer him to a psych facility but he was undecided if he wanted to go or not. Reports he wants to get him and reevaluated as an adult, last time he was evaluated was when he was 9 years old. Coronavirus screen: Proceed with normal triage. Patient denies a cough. Patient denies shortness of breath or difficulty breathing. Patient denies measured and/or subjective temperature greater than 100.4F prior to today's visit. Patient denies travel on a cruise ship or to a country the [facility] currently lists as an affected area. Patient denies contact with known and/or suspected case of COVID-19. Ebola Screen: No symptoms or risks identified at this time. Risk Assessment: Do you want to hurt yourself or someone else? Patient reports desire/thoughts of hurting themselves or someone else. Provider notified. Onset of symptoms was February 03, 2020. 13:28 Method Of Arrival: Ambulatory sv 13:28 Acuity: BHARAT 2 sv 13:36 Initial Sepsis Screen: Does the patient meet any 2 criteria? No. Patient's initial sv sepsis screen is negative. Does the patient have a suspected source of infection? No. Patient's initial sepsis screen is negative. Triage Assessment: 13:45 General: Appears in no apparent distress. comfortable, Behavior is cooperative, bp appropriate for age, anxious. General: 29YO WM P/W SI AND POLYSUBSTANCE ABUSE, REQUESTING TRANSFER TO PSYCH. Pain: Denies pain. EENT: No deficits noted. Neuro: No deficits noted. Cardiovascular: Rhythm is sinus rhythm. Respiratory: No deficits noted. GI: No signs and/or symptoms were reported involving the gastrointestinal system. : No signs and/or symptoms were reported regarding the genitourinary system. Derm: No deficits noted. Musculoskeletal: No deficits noted. Historical: - Allergies: 13:34 No Known Allergies; sv - PMHx: 13:34 ADD/ADHD; Anxiety; Bipolar disorder; Depression; PTSD; sv - PSHx: 13:34 Hand - RIGHT; Shoulder - RIGHT; brain sx; sv - Immunization history:: Adult Immunizations unknown. - Social history:: Smoking status: Patient reports the use of cigarette tobacco products. Screenin:45 Abuse screen: Denies threats or abuse. Denies injuries from another. Nutritional bp screening: No deficits noted. Tuberculosis screening: No symptoms or risk factors identified. Fall Risk None identified. Assessment: 13:45 General: SEE TRIAGE NOTE. bp 14:05 Reassessment: PT STATING HE WISHES TO EXIT ER, PT REMINDED OF FACILITY RULES. bp 16:51 Reassessment: PT MEDICALLY CLEARED. PSYCH PENDING. bp 17:42 Reassessment: [facility] INTERVIEW IN PROCESS VIA [employer]. bp 18:09 Reassessment: [facility] INTERVIEW COMPLETED, RECOMMENDATION PENDING. bp Psych: 13:31 Subjective: Patient's mood is sad, Delusions are denied, Hallucinations are denied sv Having thoughts of suicide. Plan for suicide is "Hang myself". Objective: Patient is cooperative, using poor eye contact, Speech is normal, Affect is appropriate. Suicide Risk Assessment: Sad Person Scale: Sex of patient: Male: Score 1 point. Age of patient: Score 1 point if patient 15-34. Depression: Score 1 point if signs of depression are present. Previous Attempt: Score 1 point if patient has previously attempted suicide. Substance Abuse: Score 1 point if patient abuses alcohol or drugs. Rational Thinking: Score 0 point if patient has rational thinking. Social Support: Score 0 if social support is present/available. Organized Plan: Score 1 point if patient had a plan in place. Relationship: Score 1 point if patient is , , , or for a single male Chronic Sickness: Score 0 point if patient does not have a chronic illness, debilitating, or severe disorder. TOTAL POINTS: If total points are 7-10, the proposed clinical action is to hospitalize or commit. Implement suicide precautions. Patient uses marijuana Last use was 30 minutes ago. Patient uses methamphetamines Last use was 1.5 days ago. Commitment: Patient will be a voluntary commitment. 13:45 Interventions: Removed personal items and placed in bag. Patient placed in hospital bp gown. Searched person for dangerous items. Safety Checks: Personal items have been removed. Door is open. No visitors are present at this time. Vital Signs: 13:36 BP 121 / 78; Pulse 92; Resp 20; Temp 98.2; Pulse Ox 98% ; Height 5 ft. 10 in. (177.80 sv cm); 16:45 BP 123 / 74 RA Sitting (auto/reg); Pulse 72 LA; Resp 16 S; Pulse Ox 97% on R/A; mb4 04 01:09 BP 122 / 72; Pulse 70; Resp 16; Temp 98.0(O); Pulse Ox 99% on R/A; Pain 0/10; ls4 ED Course: 02/05 13:25 Patient arrived in ED. ag5 13:31 Triage completed. sv 13:34 Arm band placed on. sv 13:45 Patient has correct armband on for positive identification. Bed in low position. Call bp light in reach. Side rails up X2. 13:46 Jesus Negrete, HAZEL is Primary Nurse. bp 13:46 Hi Jarrell MD is Attending Physician. kdr 14:05 Inserted saline lock: 20 gauge in left forearm, using aseptic technique. Blood bp collected. 14:47 Verbal reassurance given. mb4 14:48 Urine collected: clean catch specimen, clear, troy colored. mb4 15:09 Lights dimmed. patient provided slip resistant socks. mb4 16:01 Warm blanket given. mb4 16:37 Verbal reassurance given. Diet: Patient given snack. Patient given juice. Tolerated mb4 well. 17:39 Patient connected to [facility] via video chat. mb4 18:16 faxed chart to [facility]. bd 19:15 Attending Physician role handed off by Hi Jarrell MD fab 19:15 Mark Piper MD is Attending Physician. [facility] 02/06 01:34 Report given to Claire OLIVA to assume care. Mann Cipriano sitting one to one at bedside. ls4 Kathy Arellano of [facility] given report, questions answered. Angel assigned room 737 in the main building. 02:27 No provider procedures requiring assistance completed. IV discontinued, intact, wh bleeding controlled, No redness/swelling at site. Administered Medications: 02/05 19:50 Drug: Nicoderm CQ 21 mg/24 hr 1 patches Route: Transdermal; Site: anterior chest wall; ls4 20:30 Follow up: Response: No adverse reaction; Marked relief of symptoms ls4 20:06 Drug: Ativan 1 mg Route: IVP; Site: left forearm; ls4 20:36 Follow up: Response: No adverse reaction; Marked relief of symptoms ls4 22:24 Not Given (Other Intervention Used; other intervention): SEROquel 50 mg PO once ls4 Outcome: 19:48 ER care complete, transfer ordered by . fab 02/06 02:27 Transferred by ground EMS to [facility], Transfer form completed. X-rays sent w/ patient. Note: Report given to [facility], Pt belongings was returned by Security Condition: stable Instructed on the need for transfer. 02:30 Patient left the ED. Signatures: Danya Coleman Stephanie, RN RN sv Anderson, Corey, MD MD cha Rittger, Kevin, MD MD kdr Habalo, Winsy wh Peltier, Brian, RN RN bp Baxter, Mackenzie mb4 Peyton Denney RN RN ls4 Doc Carolina ag5 Corrections: (The following items were deleted from the chart) 02/05 13:50 13:28 Chief complaint: Patient states: reports SI the past couple of days. Reports that sv he hung himself 3 days ago in [place] and is down here with family and wants to get help. reports he wants to get him and reevaluated as an adult, last time he was evaluated was when he was 9 years old. sv
[2020-02-06] MEDS ORDERED: LORazepam 2 MG/ML VIAL ONE (19:57)
[2020-02-06] MEDS ORDERED: NICOTINE 21 MG/PAT TD ONE (19:57)
[2020-02-07 02:39] VITALS: BP 122/72; TEMP 98; O2SAT 99
== END 2020-02-07 02:30 ==
LOC: ER 13:22
DX: T43.622A Poisoning by amphetamines, intentional self-harm, initial encounter (principal); T14.91XA Suicide attempt, initial encounter; X83.8XXA Intentional self-harm by other specified means, initial encounter; F31.9 Bipolar disorder, unspecified; F55.8 Abuse of other non-psychoactive substances; Y93.89 Activity, other specified; Y92.9 Unspecified place or not applicable; F17.210 Nicotine dependence, cigarettes, uncomplicated
CPT/HCPCS: 36415; 80048; 80076; 80307; 80320; 80329; 81003; 85025; 93005; 96374; 99285

== ENCOUNTER 2021-01-06 12:46 | Emergency (ER) | payer SELFPAY ==
--- OUTSIDE RECORDS SUMMARY | 2021-01-06 12:48 | XMS REPORT | Continuity of Care Document ---
:1990 Author Organization [facility] t Address [address] [place] [address] Care Team Providers Name Role Phone Asked, Pcp Primary Care Physician Unavailable Amari Blevins MD Attending Clinician Isabell AYALA, N. 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 Social History Social Habit Start Date Stop Date Quantity Comments Source Sex Assigned At [birth year] [facility] ethodist 00:00:00 00:00:00 Medications Ordered Filled Start Stop Current Ordering Indication Dosage Frequency Signature Comments Components Source Medication Medication Date Date Medication? Clinician (SIG) Name Name venlafaxine 2020- No anxiety 75mg QD Take 1 [place] XR 02-07 with capsule Method[facility] (EFFEXOR-XR 00:00: 23:59 depression ([address] ) 75 MG 24 00 :00 total) by hr capsule mouth every morning for 14 days .anxiousne ss associated with depression . nicotine 2020- No smoking 1{patch QD Place 1 [place] (NICODERM 02-07 cessation } patch on Methodi CQ) 14 00:00: 23:[address] mg/24 hr 00 :00 daily for 14 days .stop smoking. nicotine No smoking 1{patch QD Place 1 [place] (NICODERM 02-07 cessation } patch on Methodi CQ) 14 00:00: 00:[address] mg/24 hr 00 :00 daily for 14 days .stop smoking. venlafaxine anxiety 75mg QD Take 1 [place] XR 02-07 with capsule [facility] (EFFEXOR-XR 00:00: 00:00 depression (75 [address] ) 75 MG 24 00 :00 total) by hr capsule mouth every morning for 14 days .anxiousne ss associated with depression . ARIPiprazol 2020- No 5mg QD Take 1 Jami ston e (ABILIFY) 02-06 tablet (5 Me thodi 5 MG tablet 00:00: 23:59 mg total) st 00 :00 by mouth daily for 14 days .Mood. traZODone 2019- No 100mg QD Take 1 [place] (DESYREL) 02-06 tablet Method[facility] 100 MG 00:00: 23:59 ([address] tablet 00 :00 total) by mouth nightly as needed for sleep for up to 14 days .Insomnia. ARIPiprazol 2019-0 2020- No 5mg QD Take 1 Jami ston e (ABILIFY) 02-06 tablet (5 Me thodi 5 MG tablet 00:00: 00:00 mg total) st 00 :00 by mouth daily for 14 days .Mood. traZODone 2019-0 2020- No 100mg QD Take 1 [place] (DESYREL) 02-06 tablet Method[facility] 100 MG 00:00: 00:00 ([address] tablet 00 :00 total) by mouth nightly as needed for sleep for up to 14 days .Insomnia. Vital Signs Vital Name Observation Time Observation Value Comments Source Systolic blood 2020-02-11 05:53:48 110 mm[Hg] Elidiato n Voodoo pressure Diastolic blood 2020-02-11 05:53:48 67 mm[Hg] Elidiat on Voodoo pressure Heart rate 2020-02-11 05:53:48 63 /min Josue Champion Body temperature 2020-02-11 05:53:48 36.61 [place] Elidia jackson [facility] Respiratory rate 2020-02-11 05:53:48 18 /min Elidia jackson Voodoo Oxygen saturation in 2020-02-11 05:53:48 97 /min Josue Champion Arterial blood by Pulse oximetry Body height 2020-02-07 04:48:00 180.3 cm Josue Champion Body weight 2020-02-07 04:48:00 76.204 kg Josue Champion BMI 2020-02-07 04:48:00 23.43 kg/m2 Josue Champion Procedures Procedure Date / Time Performed Performing Clinician Sour e HEMOGLOBIN A1C 2020-02-08 06:15:00 Brandon Reich LIPID PANEL 2020-02-08 06:15:00 Brandon Reich HIV AG/AB COMBINATION 2020-02-08 06:15:00 Brandon Reich SYPHILIS TOTAL ANTIBODY 2020-02-08 06:15:00 Brandon Reich Encounters Start End Encounter Admission Attending Care Care Encounter Source Date/Time Date/Time Type Type Clinicians Facility Department ID 2020-02-07 2020-02-11 [id number] 00:00:00 00:00:00 YASMIN [address] Results This patient has no known results.
[2021-01-06 14:55] LABS: SARS-COV-2 RT PCR NEGATIVE (NEGATIVE)
--- NOTE | 2021-01-06 15:16 | EDPHYS ---
Physician Documentation [facility] Name: Trixie Rutledge Age: 30 yrs Sex: Male : 1990 Arrival Date: 01/06/2021 Time: 12:50 Bed 12 Private MD: MARLYS Physician Mark Piper HPI: 01/06 15:24 This 30 yrs old Male presents to ER via Ambulatory with complaints of Fever, kb Sore Throat, Congestion. 15:24 The patient presents with sore throat. The patient describes throat pain as constant. kb Onset: The symptoms/episode began/occurred yesterday. Severity of symptoms: At their worst the symptoms were moderate, in the emergency department the symptoms are unchanged. Modifying factors: The symptoms are alleviated by nothing, the symptoms are aggravated by swallowing, Patient's oral intake status: good. Associated signs and symptoms: Pertinent positives: chills, fever, flu-like symptoms, Sore throat. The patient has not experienced similar symptoms in the past. The patient has not recently seen a physician. Historical: - Allergies: 13:21 No Known Drug Allergies; tw2 - Home Meds: 13:21 None [Active]; tw2 - PMHx: 13:21 Anxiety; Bipolar disorder; Depression; PTSD; ADD/ADHD; tw2 - PSHx: 13:21 Hand - RIGHT; Shoulder - RIGHT; brain sx; tw2 - Immunization history:: Adult Immunizations. - Social history:: Smoking status: Patient reports the use of cigarette tobacco products, smokes one pack cigarettes per day. ROS: 15:24 Cardiovascular: Negative for chest pain, palpitations, and edema, Respiratory: Negative kb for shortness of breath, cough, wheezing, and pleuritic chest pain, Abdomen/GI: Negative for abdominal pain, nausea, vomiting, diarrhea, and constipation, MS/Extremity: Negative for injury and deformity, Skin: Negative for injury, rash, and discoloration, Neuro: Negative for headache, weakness, numbness, tingling, and seizure. 15:24 Constitutional: Positive for body aches, chills, fatigue, fever, malaise. 15:24 ENT: Positive for sinus congestion, sore throat. Exam: 15:24 Constitutional: This is a well developed, well nourished patient who is awake, alert, kb and in no acute distress. Head/Face: Normocephalic, atraumatic. Cardiovascular: Regular rate and rhythm with a normal S1 and S2. No gallops, murmurs, or rubs. No pulse deficits. Respiratory: Respirations even and unlabored. No increased work of breathing, no retractions or nasal flaring. Abdomen/GI: Soft, non-tender. No distention Skin: Warm, dry with normal turgor. Normal color. MS/ Extremity: Pulses equal, no cyanosis. Neurovascular intact. Full, normal range of motion. Neuro: Awake and alert, GCS 15, oriented to person, place, time, and situation. Moves all extremities. Normal gait. 15:24 ENT: Posterior pharynx: Airway: normal, no evidence of obstruction, Tonsils: bilaterally enlarged, with erythema, swelling, that is moderate, erythema, that is moderate, exudate, is not appreciated. Vital Signs: 13:19 BP 119 / 77; Pulse 94; Resp 17; Temp 99(TE); Pulse Ox 98% on R/A; Weight 92.99 kg (R); tw2 Height 5 ft. 10 in. (177.80 cm); 13:19 Body Mass Index 29.41 (92.99 kg, 177.80 cm) tw2 MDM: 14:50 Patient medically screened. kb 15:23 Data reviewed: vital signs, nurses notes. Data interpreted: Pulse oximetry: on room air kb is 98 %. Interpretation: normal. Counseling: I had a detailed discussion with the patient and/or guardian regarding: the historical points, exam findings, and any diagnostic results supporting the discharge/admit diagnosis, lab results, the need for outpatient follow up, a family practitioner, to return to the emergency department if symptoms worsen or persist or if there are any questions or concerns that arise at home. 01/06 13:30 Order name: Strep; Complete Time: 14:50 tw2 01/06 13:34 Order name: Strep tw2 01/06 14:42 Order name: Throat Culture EDMS 01/06 14:55 Order name: COVID-19/FLU A+B; Complete Time: 14:56 EDMS Administered Medications: 15:12 Drug: Decadron (dexamethasone) 10 mg Route: IM; Site: right deltoid; ss 15:12 Drug: Augmentin (Amoxicillin-Clavulanate) 875 mg Route: PO; ss Disposition: 01/07 11:21 Co-signature as Attending Physician, Mark Piper MD I agree with the assessment and fab plan of care. Disposition: 01/06/21 15:16 Discharged to Home. Impression: Acute tonsillitis. - Condition is Stable. - Discharge Instructions: Tonsillitis, [id number]. - Prescriptions for Augmentin 875- 125 mg Oral Tablet - take 1 tablet by ORAL route every 12 hours for 10 days; 20 tablet. - Medication Reconciliation Form, Thank You Letter, Antibiotic Education, Prescription Opioid Use form. - Follow up: Emergency Department; When: As needed; Reason: Worsening of condition. Follow up: Private Physician; When: 2 - 3 days; Reason: Recheck today's complaints, Continuance of care, Re-evaluation by your physician. Signatures: Dispatcher [employer] EDMS Yani Erickson, ONEIDA HORVATH-Mark Paul MD MD cha Smirch, Shelby RN RN Rosalva Lugo RN RN tw2 Corrections: (The following items were deleted from the chart) 01/06 14:08 13:25 Influenza Screen (A \T\ B)+BA.LAB.BRZ ordered. EDMS EDMS 14:08 13:31 CORONAVIRUS+MR.LAB.BRZ ordered. EDOK EDMS 15:38 15:16 01/06/2021 15:16 Discharged to Home. Impression: Acute tonsillitis. Condition is ss Stable. Forms are Medication Reconciliation Form, Thank You Letter, Antibiotic Education, Prescription Opioid Use. Follow up: Emergency Department; When: As needed; Reason: Worsening of condition. Follow up: Private Physician; When: 2 - 3 days; Reason: Recheck today's complaints, Continuance of care, Re-evaluation by your physician. kb
--- NOTE | 2021-01-06 15:16 | ER ---
Nurse's Notes [facility] Name: Trixie Rutledge Age: 30 yrs Sex: Male : 1990 Arrival Date: 01/06/2021 Time: 12:50 Bed 12 Private MD: Diagnosis: Acute tonsillitis Presentation: 01/06 13:19 Chief complaint: Patient states: last night i started with sore throat, congestion, and tw2 fever. no otc meds. and my body aches like crazy. Coronavirus screen: chills, fever, headache, runny nose, sore throat, Client presents with at least one sign or symptom that may indicate coronavirus-19. Standard/surgical mask placed on the client. Provider contacted for isolation considerations. Ebola Screen: Patient denies travel to an Ebola-affected area in the 21 days before illness onset. Initial Sepsis Screen: Does the patient meet any 2 criteria? No. Patient's initial sepsis screen is negative. Does the patient have a suspected source of infection? No. Patient's initial sepsis screen is negative. Risk Assessment: Do you want to hurt yourself or someone else? Patient reports no desire to harm self or others. Onset of symptoms was January 06, 2021. 13:19 Method Of Arrival: Ambulatory tw2 13:19 Acuity: BHARAT 4 tw2 Triage Assessment: 13:22 General: Appears in no apparent distress. well groomed, Behavior is calm, cooperative, tw2 appropriate for age. Pain: Complains of pain in body aches. EENT: Reports nasal congestion nasal discharge. Historical: - Allergies: 13:21 No Known Drug Allergies; tw2 - Home Meds: 13:21 None [Active]; tw2 - PMHx: 13:21 Anxiety; Bipolar disorder; Depression; PTSD; ADD/ADHD; tw2 - PSHx: 13:21 Hand - RIGHT; Shoulder - RIGHT; brain sx; tw2 - Immunization history:: Adult Immunizations. - Social history:: Smoking status: Patient reports the use of cigarette tobacco products, smokes one pack cigarettes per day. Screenin:30 Abuse screen: Denies threats or abuse. Denies injuries from another. Nutritional ss screening: No deficits noted. Tuberculosis screening: Never had TB. Fall Risk None identified. Assessment: 15:00 General: Appears uncomfortable, Behavior is calm, cooperative. General: Reports feeling ss ill for 2-3 days. Pain: Complains of pain in throat. Neuro: Level of Consciousness is awake, alert, obeys commands, Oriented to person, place, time, situation, Infectious Waste Technician are equal bilaterally Gait is steady, Speech is normal, Facial symmetry appears normal. Cardiovascular: Capillary refill < 3 seconds is brisk in bilateral fingers Patient's skin is warm and dry. Respiratory: Airway is patent Respiratory effort is even, unlabored, Respiratory pattern is regular, symmetrical. GI: Patient currently denies. EENT: Throat is reddened. Derm: Skin is pink, warm \T\ dry. normal. Vital Signs: 13:19 BP 119 / 77; Pulse 94; Resp 17; Temp 99(TE); Pulse Ox 98% on R/A; Weight 92.99 kg (R); tw2 Height 5 ft. 10 in. (177.80 cm); 13:19 Body Mass Index 29.41 (92.99 kg, 177.80 cm) tw2 ED Course: 12:50 Patient arrived in ED. mr 13:21 Triage completed. tw2 13:22 Arm band placed on. tw2 14:50 [facility] Erickson [facility]C [facility]. kb 14:50 Mark Piper MD is Attending Physician. kb 15:12 Bethany Mercer, HAZEL is Primary Nurse. ss 15:13 No provider procedures requiring assistance completed. Patient did not have IV access ss during this emergency room visit. 15:30 Patient has correct armband on for positive identification. Bed in low position. Call ss light in reach. Administered Medications: 15:12 Drug: Decadron (dexamethasone) 10 mg Route: IM; Site: right deltoid; ss 15:12 Drug: Augmentin (Amoxicillin-Clavulanate) 875 mg Route: PO; ss Outcome: 15:16 Discharge ordered by . kb 15:29 Discharged to home ambulatory. ss 15:29 Condition: good 15:29 Discharge instructions given to patient, Instructed on discharge instructions, follow up and referral plans. medication usage, Demonstrated understanding of instructions, follow-up care, medications, Prescriptions given X 1. 15:38 Patient left the ED. ss Signatures: Yani Erickson FNP-C FNP-Yang SharifaYoselin mr Bethany Mercer, RN RN ss Parish, Rosalva, RN RN tw2
[2021-01-06] MEDS ORDERED: AMOX/K CLAV 875 MG TAB ONE (15:26)
[2021-01-06] MEDS ORDERED: dexAMETHasone 10 MG/ML VIAL ONE (15:26)
[2021-01-06 15:48] VITALS: BP 119/77; TEMP 99; O2SAT 98
== END 2021-01-06 15:38 | disposition home or self-care (01) ==
LOC: ER 12:46
DX: J03.90 Acute tonsillitis, unspecified (principal); Z20.822 Contact with and (suspected) exposure to COVID-19; F17.210 Nicotine dependence, cigarettes, uncomplicated
CPT/HCPCS: 0240U; 87070; 87081; 96372; 99283; J1100